=== PATIENT | female | born 1960 | race Caucasian/White ===

== ENCOUNTER 2016-09-18 12:38 | Emergency (ER) | payer SELFPAY ==
[2016-09-18 12:51] VITALS: BP 134/74
[2016-09-18] MEDS ORDERED: ASPIRIN 81 MG TABLET, CHEWABLE PO ONE (12:55)
--- NOTE | 2016-09-18 12:55 | ER Document Report ---
ED Medical Screen (RME) - General Chief Complaint: Chest Pain Stated Complaint: DIFFICULTY BREATHING Time seen by provider: 12:53 Mode of Arrival: Ambulatory Information source: Patient Notes: 56-year-old female presents to ED for shortness of breath times a week the chest pains this started last night will tight in the chest and back. States she was seen at [place] last week diagnosed with bronchitis. Denies any cardiac history. Complains of nausea but no vomiting states feels like heartburn every time she swallows. I have greeted and performed a rapid initial assessment of this patient. A comprehensive ED assessment and evaluation of the patient, analysis of test results and completion of medical decision making process will be conducted by an additional ED providers. TRAVEL OUTSIDE OF THE [place] IN LAST 30 DAYS: No - Related Data Allergies/Adverse Reactions: No Known Allergies Allergy (Verified 12/27/12 01:50) Past Medical History Musculoskeltal Medical History: Reports Hx Arthritis, Reports Hx Musculoskeletal Trauma - right torn menisus Past Surgical History: Reports: Hx Section, Hx Orthopedic Surgery - rt knee ( meniscus} - Immunizations Immunizations up to date: No Hx Diphtheria, Pertussis, Tetanus Vaccination: No Physical Exam - Vital signs Vitals: Temp Pulse Resp BP Pulse Ox 98.0 F 80 16 134/74 H 97 09/18/16 12:50 09/18/16 12:50 09/18/16 12:50 09/18/16 12:50 09/18/16 12:50 Course - Vital Signs Vital signs: Temp Pulse Resp BP Pulse Ox 98.0 F 80 16 134/74 H 97 09/18/16 12:50 09/18/16 12:50 09/18/16 12:50 09/18/16 12:50 09/18/16 12:50
[2016-09-18 13:52] LABS: ABSOLUTE EOSINOPHILS # (AUTO) 0.3 10^3/uL (0.0-0.6); ABSOLUTE LYMPHOCYTES (AUTO) 1.4 10^3/uL (0.5-4.7); ABSOLUTE MONOCYTES (AUTO) 0.4 10^3/uL (0.1-1.4); ABSOLUTE NEUT (AUTO) 2.9 10^3/uL (1.7-8.2); BASOPHILS % (AUTO) 0.7 % (0-2); EOSINOPHILS % (AUTO) 6.3 % (0-6); HEMATOCRIT 34.3 % (36.0-47.0); HEMOGLOBIN 10.5 g/dL (12.0-15.5); HGB HCT DIFFERENCE -2.8; LYMPHOCYTES % (AUTO) 27.5 % (13-45); MEAN CORPUSCULAR HEMOGLOBIN 25.1 pg (27.0-33.4); MEAN CORPUSCULAR HGB CONC 30.7 g/dL (32.0-36.0); MEAN CORPUSCULAR VOLUME 82 fl (80-97); MONOCYTES % (AUTO) 8.6 % (3-13); RED CELL DISTRIBUTION WIDTH 15.7 % (11.5-14.0); SEGMENTED NEUTROPHILS % (AUTO) 56.9 % (42-78); WHITE BLOOD COUNT 5.1 10^3/uL (4.0-10.5)
[2016-09-18 14:03] LABS: ALANINE AMINOTRANSFERASE 23 U/L (9-52); ALBUMIN 3.8 g/dL (3.5-5.0); ALKALINE PHOSPHATASE 52 U/L (38-126); ANION GAP 9 (5-19); ASPARTATE AMINO TRANSFERASE 17 U/L (14-36); BILIRUBIN,TOTAL 0.4 mg/dL (0.2-1.3); BLOOD UREA NITROGEN 12 mg/dL (7-20); CALCIUM 9.3 mg/dL (8.4-10.2); CARBON DIOXIDE 31 mmol/L (22-30); CHLORIDE 100 mmol/L (98-107); CREATINE KINASE 112 U/L (30-135); GLUCOSE 99 mg/dL (75-110); POTASSIUM 4.7 mmol/L (3.6-5.0); SODIUM 139.8 mmol/L (137-145); TOTAL PROTEIN 6.9 g/dL (6.3-8.2)
[2016-09-18 14:14] LABS: CREATINE KINASE MB 2.07 ng/mL (<4.55)
[2016-09-18 14:18] LABS: TROPONIN I < 0.012 ng/mL
--- NOTE | 2016-09-18 15:04 | ER Document Report ---
ED General - General Chief Complaint: Cough Stated Complaint: DIFFICULTY BREATHING Mode of Arrival: Ambulatory TRAVEL OUTSIDE OF THE [place] IN LAST 30 DAYS: No - HPI Patient complains to provider of: cough shortness of breath Onset: Last week Onset/Duration: Gradual Notes: Patient coming in for evaluation of cough and was breath. Patient was seen last week at [facility] for similar complaint and was given IV are all steroids and Z-Jose. Patient states she finished up her antibiotics but states she feels she her symptoms continue. Patient denies ever smoking denies history COPD. Denies any recent travel denies any pain denies fever chills nausea vomiting abdominal pain diarrhea. Patient upon evaluation is nontoxic. Vital signs show no signs of hypoxia. - Related Data Allergies/Adverse Reactions: No Known Allergies Allergy (Verified 09/18/16 12:54) Past Medical History - General Information source: Patient - Social History Smoking Status: Never Smoker Chew tobacco use (# tins/day): No Frequency of alcohol use: None Drug Abuse: None Family History: None Patient has suicidal ideation: No Patient has homicidal ideation: No Renal/ Medical History: Denies: Hx Peritoneal Dialysis Musculoskeltal Medical History: Reports Hx Arthritis, Reports Hx Musculoskeletal Trauma - right torn menisus Past Surgical History: Reports: Hx Section, Hx Orthopedic Surgery - rt knee ( meniscus} - Immunizations Immunizations up to date: No Hx Diphtheria, Pertussis, Tetanus Vaccination: No Review of Systems - Review of Systems Constitutional: No symptoms reported EENT: No symptoms reported Cardiovascular: No symptoms reported Respiratory: Cough, Short of breath Gastrointestinal: No symptoms reported Genitourinary: No symptoms reported Female Genitourinary: No symptoms reported Musculoskeletal: No symptoms reported Skin: No symptoms reported Hematologic/Lymphatic: No symptoms reported Neurological/Psychological: No symptoms reported -: Yes All other systems reviewed and negative Physical Exam - Vital signs Vitals: Temp Pulse Resp BP Pulse Ox 98.0 F 80 16 134/74 H 97 09/18/16 12:50 09/18/16 12:50 09/18/16 12:50 09/18/16 12:50 09/18/16 12:50 Interpretation: Normal - General General appearance: Appears well, Alert - HEENT Head: Normocephalic, Atraumatic Eyes: Normal Pupils: PERRL - Respiratory Respiratory status: No respiratory distress Chest status: Nontender Breath sounds: Normal, Other - Clear no coughing while in examination room Chest palpation: Normal - Cardiovascular Rhythm: Regular Heart sounds: Normal auscultation Murmur: No - Abdominal Inspection: Normal Distension: No distension Bowel sounds: Normal Tenderness: Nontender Organomegaly: No organomegaly - Back Back: Normal, Nontender - Extremities General upper extremity: Normal inspection, Nontender, Normal color, Normal ROM , Normal temperature General lower extremity: Normal inspection, Nontender, Normal color, Normal ROM , Normal temperature, Normal weight bearing. No: Jones's sign - Neurological Neuro grossly intact: Yes Cognition: Normal Orientation: AAOx4 [place] Coma Scale Eye Opening: Spontaneous Tray Coma Scale Verbal: Oriented [place] Coma Scale Motor: Obeys Commands Tray Coma Scale Total: 15 Speech: Normal Motor strength normal: LUE, RUE, LLE, RLE Sensory: Normal - Psychological Associated symptoms: Normal affect, Normal mood - Skin Skin Temperature: Warm Skin Moisture: Dry Skin Color: Normal Course - Re-evaluation Re-evalutation: 09/18/16 15:01 Patient was treated properly for her bronchitis prior to arrival. At this time patient's lungs are clear no signs of hypoxia no tachypnea. Patient has no travel history patient does not have any criteria to make me think of a PE. An EKG laboratory was performed all negative. Patient was encouraged follow-up with her primary care physician. Patient at the end of examination does admit that she does have a albuterol inhaler but is unable to use it. Education was provided to the patient. An AeroChamber was also provided to the patient. 09/18/16 22:20 - Vital Signs Vital signs: Temp Pulse Resp BP Pulse Ox 98.0 F 80 16 134/74 H 97 09/18/16 12:50 09/18/16 12:50 09/18/16 12:50 09/18/16 12:50 09/18/16 12:50 - Laboratory Result Diagrams: 09/18/16 13:25 09/18/16 13:25 Laboratory results interpreted by me: 09/18/16 09/18/16 13:25 13:25 Hgb 10.5 L Hct 34.3 L MCH 25.1 L MCHC 30.7 L RDW 15.7 H Eosinophils % 6.3 H Carbon Dioxide 31 H Discharge - Discharge Clinical Impression: Otalgia of both ears Dyspnea Qualifiers: Dyspnea type: unspecified Qualified Code(s): R06.00 - Dyspnea, unspecified Condition: Good Disposition: HOME, SELF-CARE Instructions: Bronchitis ([facility]) Additional Instructions: You were perfectly treated for your bronchitis at [facility]. Although you have finished her medications your symptoms may linger for 1-2 weeks after treatment. Examination today is normal your chest x-ray and lab work are also normal. I would highly recommend using the inhaler that she obtained from [employer] and from here at [facility] 2 puffs every 4 hours for any shortness of breath. Please follow-up with your primary care physician for further evaluation. You do have fluid behind both of your eardrums. More likely this is from congestion. You may take the decongestant as prescribed. Prescriptions: Loratadine/Pseudoephedrine Sul [Claritin-D 12 Hour Tablet] 1 each PO BID #[id number] Referrals: KEESHA DANIEL PA-C [Primary Care Provider] - Follow up as needed
[2016-09-18] MEDS ORDERED: ALBUTEROL SULFATE HFA (90 MCG/PUFF) 8 GM MDI (1 MDI/ER DISP) IH ONE (15:06)
--- NOTE | 2016-09-18 18:42 | EKG REPORT ---
SEVERITY:- BORDERLINE ECG - SINUS RHYTHM BORDERLINE LEFT AXIS DEVIATION BORDERLINE T ABNORMALITIES, ANT-LAT LEADS : Confirmed by: Lucrecia Galan MD 18-Sep-2016 18:41:05
== END 2016-09-18 15:35 | disposition home or self-care (01) ==
LOC: ER 12:38
DX: R06.02 Shortness of breath (principal); H92.03 Otalgia, bilateral; R05 Cough
CPT/HCPCS: 93005; 99284; 36415; 82553; 82550; 85025; 80053; 84484; 71020; 93010; J3490

== ENCOUNTER 2018-04-30 12:17 | Emergency (ER) | payer SELFPAY ==
[2018-04-30] MEDS ORDERED: TETRACAINE HCL 0.5% OPH SOLN 4 ML OD ONE (13:06)
--- NOTE | 2018-04-30 13:20 | ER Document Report ---
ED Eye Complaint - General Chief Complaint: Eye Problem Stated Complaint: EYE ISSUE Time Seen by Provider: 04/30/18 13:00 Mode of Arrival: Ambulatory Information source: Patient Notes: 57-year-old female presents to ED for complaint of eye redness itching and watering since yesterday. Patient states she gets this every year about this time. She sometimes has drainage and runny eye and he gets a little red. She states her boss that she had to come and get it checked out. TRAVEL OUTSIDE OF THE [place] IN LAST 30 DAYS: No - HPI Onset: Yesterday Eye location: Left Injury: No Occurred at: Home Quality of pain: Other - Itchy irritated Severity: Mild Pain Level: 1 Associated symptoms: Itching - Related Data Allergies/Adverse Reactions: No Known Allergies Allergy (Verified 04/30/18 12:19) Past Medical History - General Information source: Patient - Social History Smoking Status: Unknown if Ever Smoked Chew tobacco use (# tins/day): No Frequency of alcohol use: None Drug Abuse: None Family History: None Patient has suicidal ideation: No Patient has homicidal ideation: No Renal/ Medical History: Denies: Hx Peritoneal Dialysis Musculoskeletal Medical History: Reports Hx Arthritis, Reports Hx Musculoskeletal Trauma - right torn menisus Past Surgical History: Reports: Hx Section, Hx Orthopedic Surgery - rt knee ( meniscus} - Immunizations Immunizations up to date: No Hx Diphtheria, Pertussis, Tetanus Vaccination: No Physical Exam - Vital signs Vitals: Temp Pulse Resp BP Pulse Ox 98.4 F 76 18 147/76 H 100 04/30/18 12:23 04/30/18 12:23 04/30/18 12:23 04/30/18 12:23 04/30/18 12:23 Interpretation: Normal - General General appearance: Appears well, Alert - HEENT Head: Normocephalic, Atraumatic Eyes: Normal, Tears Conjunctiva: Injected. No: Purulent discharge Cornea: No: Corneal abrasion, Corneal ulcer, Dendrite, Embedded foreign body, Flourescein stain uptake, Opacified, Superficial foreign body Eyelashes: Normal Pupils: PERRL Visual acuity- Right eye: 20/25 Visual acuity- Left eye: 20/30 Visual acuity- Both eyes: 20/30 Corrective lenses worn: No Ears: Normal External canal: Normal Tympanic membrane: Normal Sinus: Normal Nasal: Normal Mouth/Lips: Normal Pharynx: Normal Neck: Normal - Respiratory Respiratory status: No respiratory distress Chest status: Nontender Breath sounds: Normal Chest palpation: Normal - Cardiovascular Rhythm: Regular Heart sounds: Normal auscultation Murmur: No - Abdominal Inspection: Normal Distension: No distension Bowel sounds: Normal Tenderness: Nontender Organomegaly: No organomegaly - Back Back: Normal, Nontender - Extremities General upper extremity: Normal inspection, Nontender, Normal color, Normal ROM , Normal temperature General lower extremity: Normal inspection, Nontender, Normal color, Normal ROM , Normal temperature, Normal weight bearing. No: Jones's sign - Neurological Neuro grossly intact: Yes Cognition: Normal Orientation: AAOx4 [place] Coma Scale Eye Opening: Spontaneous Tray Coma Scale Verbal: Oriented Tray Coma Scale Motor: Obeys Commands Tray Coma Scale Total: 15 Speech: Normal Motor strength normal: LUE, RUE, LLE, RLE Sensory: Normal - Psychological Associated symptoms: Normal affect, Normal mood - Skin Skin Temperature: Warm Skin Moisture: Dry Skin Color: Normal Course - Vital Signs Vital signs: Temp Pulse Resp BP Pulse Ox 98.0 F 66 14 146/77 H 100 04/30/18 13:55 04/30/18 13:55 04/30/18 13:55 04/30/18 13:55 04/30/18 13:55 Discharge - Discharge Clinical Impression: Viral conjunctivitis of right eye Condition: Stable Disposition: HOME, SELF-CARE Additional Instructions: CONJUNCTIVITIS: You have an infection in your eye, commonly known as "pink eye." Conjunctivitis causes redness, mild discomfort, itching, and mattering on the eyelids. It is very contagious, so you must be careful to wash your hands after touching your face so you don't pass the infection on to others. Conjunctivitis is caused by both viruses and bacteria. It usually responds quickly to treatment with antibiotic drops. These should be placed in the eye as prescribed (usually every three to four hours while you're awake). If you wear contact lenses, don't put them in your eyes until the infection is cleared and you are no longer using the drops (unless your doctor advises you otherwise). Should you develop increasing eye pain, severe swelling, decreased vision, or fail to improve as expected, please return for re-examination. EYEDROP USE: Eyedrops are most easily applied by pulling down on the cheek just below the lower eyelid. The lower lid will pop out to form a pouch into which you can drop the medicine. A small brief sting is not unusual, especially if the eye is reddened and irritated already. Use the drops exactly as recommended. You should see the doctor at once if there is a decrease in vision, swelling of the eye, or an increase in discomfort. FOLLOW-UP CARE: If you have been referred to a physician for follow-up care, call the physician s office for an appointment as you were instructed or within the next two days. If you experience worsening or a significant change in your symptoms, notify the physician immediately or return to the Emergency Department at any time for re-evaluation. Prescriptions: Trifluridine [Viroptic] 1 drop RT_EYE Q3HWA 7 Days drops Forms: Elevated Blood Pressure, Return to Work Referrals: KEESHA DANIEL PA-C [Primary Care Provider] - Follow up as needed
[2018-04-30] MEDS ORDERED: TRIFLURIDINE 1% OPH SOLN 7.5 ML OD ONE (13:21)
[2018-04-30 13:59] VITALS: BP 146/77
== END 2018-04-30 13:55 | disposition home or self-care (01) ==
LOC: ER 12:17
DX: B30.9 Viral conjunctivitis, unspecified (principal)
CPT/HCPCS: 99283; J3490 ×2

== ENCOUNTER 2018-06-28 13:15 | Observation (INO) | payer SELFPAY ==
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
[2018-06-28 14:45] LABS: HEMATOCRIT 24.2 % (36.0-47.0); MEAN CORPUSCULAR HEMOGLOBIN 19.6 pg (27.0-33.4); MEAN CORPUSCULAR VOLUME 65 fl (80-97); PLATELET COUNT 243 10^3/uL (150-450); RED BLOOD COUNT 3.71 10^6/uL (3.72-5.28); RED CELL DISTRIBUTION WIDTH 18.6 % (11.5-14.0)
[2018-06-28 14:48] LABS: ALANINE AMINOTRANSFERASE 16 U/L (9-52); ALKALINE PHOSPHATASE 44 U/L (38-126); ANION GAP 9 (5-19); ASPARTATE AMINO TRANSFERASE 14 U/L (14-36); BILIRUBIN,DIRECT 0.1 mg/dL (0.0-0.4); BILIRUBIN,TOTAL 0.4 mg/dL (0.2-1.3); BLOOD UREA NITROGEN 14 mg/dL (7-20); CALCIUM 9.2 mg/dL (8.4-10.2); CARBON DIOXIDE 30 mmol/L (22-30); CHLORIDE 103 mmol/L (98-107); GLUCOSE 90 mg/dL (75-110); TOTAL PROTEIN 7.4 g/dL (6.3-8.2)
[2018-06-28 14:49] LABS: POTASSIUM 4.6 mmol/L (3.6-5.0)
--- NOTE | 2018-06-28 14:57 | RADIOLOGY REPORT (SQ) ---
EXAM DESCRIPTION: CT HEAD WITHOUT COMPLETED DATE/TIME: 06/28/2018 2:11 pm REASON FOR STUDY: head trauma COMPARISON: None. TECHNIQUE: Axial images acquired through the brain without intravenous contrast. Images reviewed wi th bone, brain and subdural windows. Images stored on PACS. All CT scanners at this facility use dose modulation, iterative reconstruction, and/or weight based d osing when appropriate to reduce radiation dose to as low as reasonably achievable (ALARA). [facility]: Dose Right [facility]: CareDose [facility]: Dose Right [facility]: Teradose 4D [facility]: [employer] RADIATION DOSE: CT Rad equipment meets quality standard of care and radiation dose reduction techniq ues were employed. CTDIvol: 53.2 mGy. DLP: 1017 mGy-cm. mGy. LIMITATIONS: None. FINDINGS: VENTRICLES: Normal size and contour. CEREBRUM: No masses. No hemorrhage. No midline shift. No evidence for acute infarction. Normal gra y/white matter differentiation. No areas of low density in the white matter. CEREBELLUM: No masses. No hemorrhage. No alteration of density. No evidence for acute infarction. EXTRAAXIAL SPACES: No fluid collections. No masses. ORBITS AND GLOBE: No intra- or extraconal masses. Normal contour of globe without masses. CALVARIUM: No fracture. PARANASAL SINUSES: No fluid or mucosal thickening. SOFT TISSUES: No mass or hematoma. OTHER: No other significant finding. IMPRESSION: No acute intracranial findings. EVIDENCE OF ACUTE STROKE: NO. COMMENT: Quality ID # [id number]: Final reports with documentation of one or more dose reduction techniques (e.g., Automated exposure control, adjustment of the mA and/or kV according to patient size, use of iterative reconstruction technique) TECHNICAL DOCUMENTATION: JOB ID: [id number] [place]-72 2010 [employer]- All Rights Reserved Reading location - IP/workstation name: [email or web address]
[2018-06-28 14:58] LABS: HEMOGLOBIN 7.3 g/dL (12.0-15.5)
[2018-06-28 15:05] LABS: ABSOLUTE LYMPHOCYTES# (MANUAL) 1.6 10^3/uL (0.5-4.7); ABSOLUTE MONOCYTES # (MANUAL) 0.1 10^3/uL (0.1-1.4); ABSOLUTE NEUTROPHILS# (MANUAL) 3.2 10^3/uL (1.7-8.2); BASOPHILS % (MANUAL) 1 % (0-2); EOSINOPHILS % (MANUAL) 3 % (0-6); LYMPHOCYTES % (MANUAL) 31 % (13-45); MONOCYTES % (MANUAL) 2 % (3-13); SEGMENTED NEUTROPHILS % (MAN) 63 % (42-78); TOTAL CELLS COUNTED 100
[2018-06-28 15:08] LABS: ANISOCYTOSIS 2+; HYPOCHROMASIA 2+; PLATELET CLUMPS PRESENT; PLATELET COMMENT ADEQUATE; POIKILOCYTOSIS 1+; POLYCHROMASIA 1+; STOMATOCYTES 1+
[2018-06-28] MEDS ORDERED: PROMETHAZINE HCL 25 MG TABLET PO PRN (19:16)
[2018-06-28] MEDS ORDERED: ACETAMINOPHEN 325 MG TABLET PO PRN (19:16)
[2018-06-28] MEDS ORDERED: PROMETHAZINE HCL INJ 25 MG/1 ML VIAL IV PRN (19:16)
[2018-06-28] MEDS ORDERED: MAG HYDROX/AL HYDROX/SIMETH SUSP 30 ML UDCUP PO PRN (19:16)
[2018-06-28] MEDS ORDERED: NORMAL SALINE 250 ML IV PRN (19:17)
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
[2018-06-28 19:56] LABS: ABSOLUTE RETICS # 0.052 10^6/uL (0.028-0.122)
--- NOTE | 2018-06-28 19:57 | PDOC H&P ---
History of Present Illness Admission Date/PCP: 06/28/2018 19:42 NO PCP Patient complains of: Dizziness History of Present Illness: MANUEL MERLOS is a 57 year old female with medical history remarkable only for iron deficiency anemia since she is very young not on iron supplements. Patient tells me that 2 days ago she got hit on her head with a basketball ball , she felt dizzy, she went home, did not come to the emergency department. Since then patient has been feeling very dizzy and lightheaded. She works at [employer], she went to work today and was unable because of her symptoms, came to the emergency department. Laboratory was done in the ED and came with a hemoglobin of 7.3 with hematocrit of 24, last laboratory in our facility was from August 2016 with hemoglobin of 10.5 and hematocrit of 34, tells me that she never had her hemoglobin is low. Denies chest pain/tightness, shortness of breath, nausea, vomiting, hematuria, hemoptysis, hematemesis, hematochezia or melena. Last bowel movement today in the morning and was normal. Her last menstrual period was when when she was 50 years old. Never had a colonoscopy. In the emergency department occult blood in the stools was negative. CT of the head negative In the ED order type and screen and 2 units of PRBC Past Medical History Musculoskeltal Medical History: Reports: Arthritis Hematology: Reports: Anemia - Iron deficiency Past Surgical History Past Surgical History: Reports: Section, Orthopedic Surgery - rt knee ( meniscus} Social History Smoking Status: Never Smoker Frequency of Alcohol Use: None Hx Recreational Drug Use: No Hx Prescription Drug Abuse: No Past Social History Note: Lives with her who is at the bedside. Family History Family History: None Parental Family History Reviewed: Yes - Patient is adopted Children Family History Reviewed: NA Sibling(s) Family History Reviewed.: NA Medication/Allergy Home Medications: Loratadine/Pseudoephedrine Sul [Claritin-D 12 Hour Tab Sa] 1 each PO BID Allergies/Adverse Reactions: No Known Allergies Allergy (Verified 06/28/18 13:57) Review of Systems Review of Systems: As outlined in the HPI, others negative Physical Exam Vital Signs: Temp Pulse Resp BP Pulse Ox 98.2 F 57 L 20 136/77 H 99 06/28/18 13:26 06/28/18 16:59 06/28/18 13:26 06/28/18 16:59 06/28/18 13:26 Intake & Output 06/27/18 06/28/18 06/29/18 06:59 06:59 05:59 Weight 69.9 kg Additional comments: General appearance: Well-developed, well-nourished, alert and cooperative, and appears to be in no acute distress. Patient is able to walk to the bathroom with no problems. Head: Normocephalic Eyes: PEERL, EOMI, vision is grossly intact. Ears: External auditory canal and tympanic membranes clear, hearing grossly intact. Nose: No nasal discharge. Throat: Oral cavity and pharynx normal. No inflammation, swelling, exudate or lesions. Neck: Neck supple, nontender without lymphadenopathy, masses or thyromegaly. Cardiac: Normal S1 and S2. No S3, S4 or murmurs. Rhythm is regular. There is no peripheral edema, cyanosis or pallor. Extremities are warm and well perfused. Capillary refill is less than 2 seconds. No carotid bruits. Lungs: Clear to auscultation and percussion without rales, rhonchi, wheezing or diminished breath sounds. Not using accessory muscles. Abdomen: Positive bowel sounds. Soft. Nondistended, nontender. No guarding or rebound. No masses. No hepatosplenomegaly Extremities: No significant deformity or joint abnormality. No edema. Peripheral pulses intact. No varicosities. Neurological: Cranial nerves II through XII grossly intact. Strength and sensation symmetric and intact throughout. Reflexes 2+ throughout. Skin: Skin pale, normal texture and turgor with no lesions or eruptions, warm and dry. Psychiatric: The mental examination revealed the patient was oriented to person , place, and time. The patient was able to demonstrate good judgment on recent , without hallucinations, abnormal affect or abnormal behaviors. Results Laboratory Results: 06/28/18 14:08 06/28/18 14:08 06/28/18 06/28/18 06/28/18 14:08 14:08 17:28 WBC 5.0 RBC 3.71 L Hgb 7.3 L Hct 24.2 L MCV 65 L MCH 19.6 L MCHC 30.0 L RDW 18.6 H Plt Count 243 Seg Neutrophils % Not Reportable Lymphocytes % Not Reportable Monocytes % Not Reportable Eosinophils % Not Reportable Basophils % Not Reportable Absolute Neutrophils Not Reportable Absolute Lymphocytes Not Reportable Absolute Monocytes Not Reportable Absolute Eosinophils Not Reportable Absolute Basophils Not Reportable Sodium 142.0 Potassium 4.6 Chloride 103 Carbon Dioxide 30 Anion Gap 9 BUN 14 Creatinine 0.82 Est GFR ( Amer) > 60 Est GFR (Non-Af Amer) > 60 Glucose 90 Calcium 9.2 Total Bilirubin 0.4 AST 14 ALT 16 Alkaline Phosphatase 44 Total Protein 7.4 Albumin 4.0 Stool Occult Blood NEGATIVE Impressions: Head CT 06/28/18 13:56 IMPRESSION: No acute intracranial findings. EVIDENCE OF ACUTE STROKE: NO. Assessment & Plan - Diagnosis (1) Symptomatic anemia Is this a current diagnosis for this admission?: Yes Plan: Patient comes in the emergency department with persistent dizziness and lightheadedness for the last 2 days, she denies other symptomatology. Patient is not actively bleeding. Hemoglobin 7.2 hematocrit 24 with a MCV of 65 and many red blood cells abnormalities. occult blood stools negative. Type and screen ordered in the emergency department as well as 2 units of PRBC. I am adding to previous labs anemia workup with iron, TIBC, ferritin, vitamin B12, folate, reticulocyte, TSH. Patient never had insurance and does the reason she did not have a colonoscopy. Continues telemetry monitoring. (2) Iron deficiency anemia Qualifiers: Iron deficiency anemia type: unspecified iron deficiency Qualified Code(s) : D50.9 - Iron deficiency anemia, unspecified Is this a current diagnosis for this admission?: Yes Plan: Anemia workup has been sent, we will treat accordingly. Patient tells me that she used to take Centrum for her iron deficiency anemia but she cannot afford it , last used 2 years ago. (3) DVT prophylaxis Is this a current diagnosis for this admission?: Yes Plan: SCD - Time Time Spent: 50 to 70 Minutes - Plan Summary Plan Summary: Plan discussed with patient and who is at the bedside, agree with it.
[2018-06-28 20:19] LABS: FERRITIN 4.48 ng/mL (11.1-264.0)
[2018-06-28 20:22] LABS: INTERNATIONAL RATION (INR) 0.98; PROTHROMBIN TIME 13.5 SEC (11.4-15.4)
[2018-06-28 20:51] LABS: IRON(TIBC) < 10.1 ug/dL (37-170)
[2018-06-29 06:46] LABS: HEMATOCRIT 28.5 % (36.0-47.0); MEAN CORPUSCULAR HGB CONC 31.2 g/dL (32.0-36.0); PLATELET COUNT 198 10^3/uL (150-450); RED BLOOD COUNT 4.04 10^6/uL (3.72-5.28); WHITE BLOOD COUNT 3.8 10^3/uL (4.0-10.5)
[2018-06-29 06:51] LABS: HEMOGLOBIN 8.9 g/dL (12.0-15.5)
[2018-06-29 07:04] LABS: ANION GAP 9 (5-19); BLOOD UREA NITROGEN 9 mg/dL (7-20); CALCIUM 8.9 mg/dL (8.4-10.2); CARBON DIOXIDE 27 mmol/L (22-30); CHLORIDE 105 mmol/L (98-107); GLUCOSE 100 mg/dL (75-110); POTASSIUM 4.7 mmol/L (3.6-5.0); SODIUM 140.5 mmol/L (137-145)
[2018-06-29 07:14] LABS: MEAN CORPUSCULAR VOLUME 71 fl (80-97)
[2018-06-29] MEDS ORDERED: FERROUS SULFATE 325 MG TABLET PO SCH (08:00)
--- NOTE | 2018-06-29 12:41 | PDOC CONSULTATION ---
Consultation Consult Date: 06/29/18 Consult reason:: Anemia History of Present Illness Admission Date/PCP: 06/28/18 19:28 Patient complains of: lightheadedness History of Present Illness: MANUEL MERLOS is a 57 year old female who claims she has history of chronic anemia was hit by a basketball on her head about 3 days ago. Was sent to ED while at work yesterday because of lightheadednedd. Hemoglobin on admission was 7.3 and went up yo 8.9 after 2 units of PRBC. Stool is negative for guiac. She feels a lot better now. Claims she may have lost a few lbs since working at [employer] where she claims no airconditioning and sweats alot. She refuses to have colonoscopy at this time despite long discussion with her and her . Past Medical History Musculoskeltal Medical History: Reports: Arthritis Hematology: Reports: Anemia - Iron deficiency Past Surgical History Past Surgical History: Reports: Section, Orthopedic Surgery - rt knee ( meniscus} Social History Smoking Status: Never Smoker Frequency of Alcohol Use: None Hx Recreational Drug Use: No Drugs: None Hx Prescription Drug Abuse: No - Advance Directive Resuscitation Status: Full Code Family History Family History: None, Reviewed & Not Pertinent, Other - adopted and does not know history of parents. All children apparently are well. Parental Family History Reviewed: No Children Family History Reviewed: Yes Sibling(s) Family History Reviewed.: No Medication/Allergy Home Medications: Fexofenadine HCl [Carolee] 180 mg PO DAILYP PRN 06/29/18 Allergies/Adverse Reactions: No Known Allergies Allergy (Verified 06/28/18 13:57) Review of Systems Constitutional: PRESENT: weight loss, other - a few lbs maybe 20-25 lbs for past year Eyes: PRESENT: other - no visual/hearing changes Cardiovascular: PRESENT: other - no chest pains/cough Respiratory: PRESENT: other - no dyspnea Gastrointestinal: PRESENT: other - no melena Genitourinary: PRESENT: other - no dysuria Neurological: PRESENT: other - lightheadedness Physical Exam Vital Signs: Temp Pulse Resp BP Pulse Ox 98.5 F 62 16 131/78 H 99 06/29/18 09:24 06/29/18 09:24 06/29/18 09:24 06/29/18 09:24 06/29/18 09:24 Intake & Output 06/28/18 06/29/18 06/30/18 07:59 06:59 06:59 Intake Total Balance Weight General appearance: PRESENT: no acute distress Head exam: PRESENT: atraumatic Eye exam: PRESENT: conjunctiva pale Mouth exam: PRESENT: moist Neck exam: PRESENT: full ROM Respiratory exam: PRESENT: clear to auscultation herb Cardiovascular exam: PRESENT: RRR Pulses: PRESENT: normal radial pulses Vascular exam: PRESENT: normal capillary refill GI/Abdominal exam: PRESENT: soft, other - no mass palpated or organomegaly Rectal exam: PRESENT: deferred Extremities exam: PRESENT: full ROM Musculoskeletal exam: PRESENT: ambulatory Neurological exam: PRESENT: alert, oriented to person, oriented to place, oriented to time, oriented to situation Psychiatric exam: PRESENT: appropriate affect Skin exam: PRESENT: normal color, warm Results Laboratory Results: 06/29/18 06:20 06/29/18 06:20 06/28/18 06/29/18 06/29/18 19:49 06:20 06:20 WBC 3.8 L RBC 4.04 Hgb 8.9 L Hct 28.5 L MCV 71 L D MCH 22.0 L MCHC 31.2 L RDW 24.0 H Plt Count 198 Sodium 140.5 Potassium 4.7 Chloride 105 Carbon Dioxide 27 Anion Gap 9 BUN 9 Creatinine 0.60 Est GFR ( Amer) > 60 Est GFR (Non-Af Amer) > 60 Glucose 100 Calcium 8.9 Blood Type O POSITIVE Antibody Screen NEGATIVE Impressions: Head CT 06/28/18 13:56 IMPRESSION: No acute intracranial findings. EVIDENCE OF ACUTE STROKE: NO. Assessment & Plan - Time Time Spent: 30 to 50 Minutes - Plan Summary Plan Summary: Refuses colonoscopy at this time She claims she'll see her 's PMD though she does not have insurance at this time
[2018-06-29 13:07] VITALS: BP 140/76
--- NOTE | 2018-06-29 14:47 | PDOC DISCHARGE SUMMARY ---
General - Admit/Disc Date/PCP Admission Date/Primary Care Provider: 06/28/18 19:28 Discharge Date: 06/29/18 - Discharge Diagnosis (1) Iron deficiency anemia Is this a current diagnosis for this admission?: Yes (2) Symptomatic anemia Is this a current diagnosis for this admission?: Yes - Additional Information Resuscitation Status: Full Code Home Medications: Fexofenadine HCl [Carolee] 180 mg PO DAILYP PRN 06/29/18 History of Present Illness History of Present Illness: MANUEL MERLOS is a 57 year old female with medical history remarkable only for iron deficiency anemia since she is very young not on iron supplements. Patient tells me that 2 days ago she got hit on her head with a basketball ball , she felt dizzy, she went home, did not come to the emergency department. Since then patient has been feeling very dizzy and lightheaded. She works at [employer], she went to work today and was unable because of her symptoms, came to the emergency department. Laboratory was done in the ED and came with a hemoglobin of 7.3 with hematocrit of 24, last laboratory in our facility was from August 2016 with hemoglobin of 10.5 and hematocrit of 34, tells me that she never had her hemoglobin is low. Denies chest pain/tightness, shortness of breath, nausea, vomiting, hematuria, hemoptysis, hematemesis, hematochezia or melena. Last bowel movement today in the morning and was normal. Her last menstrual period was when when she was 50 years old. Never had a colonoscopy. In the emergency department occult blood in the stools was negative. CT of the head negative In the ED order type and screen and 2 units of PRBC Hospital Course Hospital Course: Positive patient left AMA. She was counseled about her iron deficiency anemia and the need for further workup and the risk of not treating it. Surgery was consulted for possible colonoscopy but she refused it. Hematology oncology was also consulted for further iron deficiency anemia. Patient decided to leave AMA anyway Physical Exam Vital Signs: Temp Pulse Resp BP Pulse Ox 98.4 F 55 L 13 140/76 H 100 06/29/18 13:07 06/29/18 13:07 06/29/18 13:07 06/29/18 13:07 06/29/18 13:07 Intake & Output 06/28/18 06/29/18 06/30/18 07:59 06:59 06:59 Intake Total 118 Balance 118 Weight Results Laboratory Results: 06/29/18 06:20 06/29/18 06:20 06/28/18 06/29/18 06/29/18 19:49 06:20 06:20 WBC 3.8 L RBC 4.04 Hgb 8.9 L Hct 28.5 L MCV 71 L D MCH 22.0 L MCHC 31.2 L RDW 24.0 H Plt Count 198 Sodium 140.5 Potassium 4.7 Chloride 105 Carbon Dioxide 27 Anion Gap 9 BUN 9 Creatinine 0.60 Est GFR ( Amer) > 60 Est GFR (Non-Af Amer) > 60 Glucose 100 Calcium 8.9 Blood Type O POSITIVE Antibody Screen NEGATIVE Impressions: Head CT 06/28/18 13:56 IMPRESSION: No acute intracranial findings. EVIDENCE OF ACUTE STROKE: NO. Qualifiers - * PATIENT BEING DISCHARGED WITH ANY OF THE FOLLOWING DIAGNOSIS: No
== END 2018-06-29 13:00 | disposition left against medical advice (07) ==
LOC: ER 13:15 → EH 19:28 → 5 20:40
PROVIDERS: ADMIT Internal Medicine; ATTEND Internal Medicine
PROC: 30233N1 Transfusion of Nonautologous Red Blood Cells into Peripheral Vein, Percutaneous Approach (ICD-10-PCS; principal; 2018-06-28)
PROC: 30233N1 Transfusion of Nonautologous Red Blood Cells into Peripheral Vein, Percutaneous Approach (ICD-10-PCS; 2018-06-29)
DX: D50.9 Iron deficiency anemia, unspecified (principal); Z53.21 Procedure and treatment not carried out due to patient leaving prior to being seen by health care provider; R63.4 Abnormal weight loss; Z53.29 Procedure and treatment not carried out because of patient's decision for other reasons; R42 Dizziness and giddiness; R11.0 Nausea; R51 Headache; W21.05XA Struck by basketball, initial encounter; Y92.838 Other recreation area as the place of occurrence of the external cause
CPT/HCPCS: 99285; 86900; 86901; 36415 ×2; 36430; 86850; 82607; 82728; 82746; 83540; 83550; 84443; 85025; 85027; 85610; 85730; 82272; 85045; 80048; 80053; 86920; 70450; G0378 ×3; P9016 ×2

== ENCOUNTER 2018-08-06 13:37 | Emergency (ER) | payer SELFPAY ==
[2018-08-06 13:50] VITALS: BP 142/79
[2018-08-06 14:11] LABS: APPEARANCE,URINE CLOUDY; BILIRUBIN,URINE NEGATIVE (NEGATIVE); GLUCOSE, URINE NEGATIVE (NEGATIVE); KETONES,URINE NEGATIVE (NEGATIVE); LEUKOCYTE ESTERASE,URINE LARGE (NEGATIVE); NITRITE,URINE NEGATIVE (NEGATIVE); PROTEIN,URINE 30 mg/dL (NEGATIVE); URINE SPECIFIC GRAVITY 1.024; UROBILINOGEN,URINE NEGATIVE mg/dL (<2.0)
[2018-08-06 14:12] LABS: COLOR,URINE YELLOW
[2018-08-06] MEDS ORDERED: CEPHALEXIN 500 MG CAPSULE PO ONE (15:04)
[2018-08-06] MEDS ORDERED: PHENAZOPYRIDINE HCL 200 MG TABLET PO ONE (15:05)
--- NOTE | 2018-08-06 15:05 | ER Document Report ---
HPI - HPI Patient complains to provider of: Painful urination Time Seen by Provider: 08/06/18 14:55 Pain Level: 5 Context: Patient is a 58-year-old female presents to the emergency department complaining of dysuria for the last 2 days. Patient states today when she urinated and wiped there was a scant amount of blood which is what presented her to the emergency room. Patient denies any vaginal discharge, malodor or itching. Patient denies any fever, nausea, vomiting. Past medical history: None Medications: None Allergies: None - REPRODUCTIVE Reproductive: DENIES: : Past Medical History - General Information source: Patient - Social History Smoking Status: Unknown if Ever Smoked Family History: None, Reviewed & Not Pertinent, Other - adopted and does not know history of parents. All children apparently are well. Renal/ Medical History: Denies: Hx Peritoneal Dialysis Musculoskeletal Medical History: Reports Hx Arthritis, Reports Hx Musculoskeletal Trauma - right torn menisus Past Surgical History: Reports: Hx Section, Hx Orthopedic Surgery - rt knee ( meniscus} - Immunizations Immunizations up to date: No Hx Diphtheria, Pertussis, Tetanus Vaccination: No Vertical Provider Document - CONSTITUTIONAL Agree With Documented VS: Yes Notes: GENERAL: Alert, interacts well. No acute distress. HEAD: Normocephalic, atraumatic. EYES: Pupils equal, round, and reactive to light. Extraocular movements intact. ENT: Oral mucosa moist, tongue midline. NECK: Full range of motion. Supple. Trachea midline. LUNGS: Clear to auscultation bilaterally, no wheezes, rales, or rhonchi. No respiratory distress. HEART: Regular rate and rhythm. No murmur ABDOMEN: Soft, non-tender. Non-distended. Bowel sounds present in all 4 quadrants. Minor suprapubic tenderness upon palpation EXTREMITIES: Moves all 4 extremities spontaneously. No edema, normal radial and dorsalis pedis pulses bilaterally. No cyanosis. BACK: no cervical, thoracic, lumbar midline tenderness. No saddle anesthesia, normal distal neurovascular exam. No CVA tenderness bilaterally NEUROLOGICAL: Alert and oriented x3. Normal speech. cranial nerves II through XII grossly intact PSYCH: Normal affect, normal mood. SKIN: Warm, dry, normal turgor. No rashes or lesions noted. - INFECTION CONTROL TRAVEL OUTSIDE OF THE [place] IN LAST 30 DAYS: No Course - Re-evaluation Re-evalutation: 08/06/18 15:03 Discussed urine results with patient, will treat for urinary tract infection, culture sent. Patient is afebrile and non-tachycardic, stable for discharge. - Vital Signs Vital signs: Temp Pulse Resp BP Pulse Ox 98.9 F 87 16 142/79 H 97 08/06/18 13:47 08/06/18 13:47 08/06/18 13:47 08/06/18 13:47 08/06/18 13:47 - Laboratory Laboratory results interpreted by me: 08/06/18 13:45 Urine Protein 30 H Ur Leukocyte Esterase LARGE H Urine Ascorbic Acid 40 H Discharge - Discharge Clinical Impression: Urinary tract infection Qualifiers: Urinary tract infection type: acute cystitis Hematuria presence: without hematuria Qualified Code(s): N30.00 - Acute cystitis without hematuria Condition: Stable Disposition: HOME, SELF-CARE Instructions: Cephalexin ([facility]), Urinary Anesthetic Agent ([facility]), Urinary Tract Infection ([facility]) Prescriptions: Cephalexin Monohydrate [Keflex 500 mg Capsule] 500 mg PO BID 7 Days #14 capsule Phenazopyridine HCl [Pyridium 200 mg Tablet] 200 mg PO TID #15 tablet Forms: Return to Work
== END 2018-08-06 15:27 | disposition home or self-care (01) ==
LOC: ER 13:37
DX: N30.00 Acute cystitis without hematuria (principal); R30.0 Dysuria
CPT/HCPCS: 99283; 87086; 81001; J3490

== ENCOUNTER 2019-02-25 21:10 | Emergency (ER) | payer SELFPAY ==
[2019-02-25 22:11] VITALS: BP 136/82
[2019-02-25 22:12] LABS: APPEARANCE,URINE CLOUDY; BILIRUBIN,URINE NEGATIVE (NEGATIVE); CALCIUM OXALATE CRYSTALS,URINE TOO NUMEROUS TO CNT /HPF; COLOR,URINE YELLOW; GLUCOSE, URINE NEGATIVE (NEGATIVE); KETONES,URINE NEGATIVE (NEGATIVE); LEUKOCYTE ESTERASE,URINE LARGE (NEGATIVE); NITRITE,URINE NEGATIVE (NEGATIVE); PROTEIN,URINE NEGATIVE (NEGATIVE); URINE SPECIFIC GRAVITY 1.017; UROBILINOGEN,URINE NEGATIVE mg/dL (<2.0)
[2019-02-25] MEDS ORDERED: CEPHALEXIN 500 MG CAPSULE PO ONE (22:48)
[2019-02-25] MEDS ORDERED: PHENAZOPYRIDINE HCL 100 MG TABLET PO ONE (22:48)
--- NOTE | 2019-02-25 22:48 | ER Document Report ---
HPI - HPI Time Seen by Provider: 02/25/19 22:28 Pain Level: 2 Context: Patient is a 58-year-old female who presents to the emergency department with a chief complaint of urinary frequency and urgency. Patient states the symptoms started this morning when she woke up. Patient states she does have a history of urinary tract infections and knew that this is what it was and wanted to catch it early. Patient denies fever or chills. Patient denies abdominal pain. Patient denies flank pain or back pain. Patient denies any past medical history. - URINARY Urinary: REPORTS: Urgency, Frequency. DENIES: Dysuria - REPRODUCTIVE Reproductive: DENIES: : Past Medical History - General Information source: Patient - Social History Smoking Status: Former Smoker Frequency of alcohol use: None Drug Abuse: None Family History: None, Reviewed & Not Pertinent, Other - adopted and does not know history of parents. All children apparently are well. Patient has suicidal ideation: No Patient has homicidal ideation: No - Past Medical History Cardiac Medical History: Reports: None Pulmonary Medical History: Reports: None EENT Medical History: Reports: None Neurological Medical History: Reports: None Endocrine Medical History: Reports: None Renal/ Medical History: Reports: None. Denies: Hx Peritoneal Dialysis Malignancy Medical History: Reports: None GI Medical History: Reports: None Musculoskeletal Medical History: Reports Hx Arthritis, Reports Hx Musculoskeletal Trauma - right torn menisus Skin Medical History: Reports None Psychiatric Medical History: Reports: None Traumatic Medical History: Reports: None Infectious Medical History: Reports: None Past Surgical History: Reports: Hx Section, Hx Orthopedic Surgery - rt knee ( meniscus} - Immunizations Immunizations up to date: No Hx Diphtheria, Pertussis, Tetanus Vaccination: No Vertical Provider Document - CONSTITUTIONAL Agree With Documented VS: Yes Exam Limitations: No Limitations General Appearance: No Apparent Distress - INFECTION CONTROL TRAVEL OUTSIDE OF THE [place] IN LAST 30 DAYS: No - HEENT HEENT: Atraumatic, Normocephalic - RESPIRATORY Respiratory: Breath Sounds Normal, No Respiratory Distress - CARDIOVASCULAR Cardiovascular: Regular Rate, Regular Rhythm - GI/ABDOMEN Gastrointestinal: Abdomen Soft, Abdomen Non-Tender - BACK Notes: No CVA tenderness. - NEURO Level of Consciousness: Awake, Alert, Appropriate - DERM Integumentary: Warm, Dry, No Rash Course - Re-evaluation Re-evalutation: 02/25/19 22:44 Patient's urine is positive for urinary tract infection. Patient is nontoxic- appearing in triage. Patient does not have a fever or nor is she tachycardic. Will prescribe patient an antibiotic as well as Pyridium for the bladder discomfort. She is in agreement with this plan. - Vital Signs Vital signs: Temp Pulse Resp BP Pulse Ox 98.6 F 68 20 136/82 H 98 02/25/19 22:08 02/25/19 22:08 02/25/19 22:08 02/25/19 22:08 02/25/19 22:08 - Laboratory Laboratory results interpreted by me: 02/25/19 21:15 Ur Leukocyte Esterase LARGE H Discharge - Discharge Clinical Impression: Acute cystitis Qualifiers: Hematuria presence: without hematuria Qualified Code(s): N30.00 - Acute cystitis without hematuria Condition: Stable Disposition: HOME, SELF-CARE Additional Instructions: Today you were seen in the emergency department for urinary symptoms. Your urine specimen was positive for a urinary tract infection. I will place you on Keflex which is an antitbiotic as well as Pyridium which is for bladder discomfort and spasms. Pyridium can change the color of your urine. Please push fluids. Urinary Tract Infection Your evaluation indicates that you have a urinary tract infection. This is due to germs growing in the bladder. This is a common problem. This infection usually responds quickly to antibiotics. Your antibiotic should be taken exactly as prescribed. Drink plenty of fluids -- three to four quarts a day. Occasionally, a bladder anesthetic will be prescribed to help stop the feeling of urgency until the antibiotic has a chance to clear the infection. This may cause your urine to be dark orange. Certain urine infections require a culture. If the doctor obtained a culture, the results will be back in two days. You should call to see if a change in treatment is needed. A repeat urinalysis after you finish treatment is often recommended. The physician will let you know if further testing is required. Call the doctor if you develop fever, chills, flank pain, inability to urinate, or blood in the urine. Prescriptions: Cephalexin Monohydrate [Keflex 500 mg Capsule] 500 mg PO BID 7 Days #14 capsule Phenazopyridine HCl [Pyridium] 100 mg PO TID PRN #6 tablet PRN Reason:
== END 2019-02-25 23:00 | disposition home or self-care (01) ==
LOC: ER 21:10
DX: N30.00 Acute cystitis without hematuria (principal); R35.0 Frequency of micturition; R39.15 Urgency of urination; Z87.891 Personal history of nicotine dependence
CPT/HCPCS: 99283; 87086; 87088; 81001; 87186; J3490

== ENCOUNTER 2019-02-28 23:41 | Emergency (ER) | payer SELFPAY ==
[2019-03-01 02:17] LABS: APPEARANCE,URINE CLEAR; BILIRUBIN,URINE NEGATIVE (NEGATIVE); COLOR,URINE AMBER; GLUCOSE, URINE NEGATIVE (NEGATIVE); KETONES,URINE NEGATIVE (NEGATIVE); URINE SPECIFIC GRAVITY 1.022
[2019-03-01 02:18] LABS: LEUKOCYTE ESTERASE,URINE NEGATIVE (NEGATIVE); NITRITE,URINE POSITIVE (NEGATIVE); PROTEIN,URINE NEGATIVE (NEGATIVE)
[2019-03-01] MEDS ORDERED: PHENAZOPYRIDINE HCL 200 MG TABLET PO ONE (02:19)
--- NOTE | 2019-03-01 02:23 | ER Document Report ---
ED General - General Chief Complaint: Urinary Problem Stated Complaint: URINARY PROBLEM Time Seen by Provider: 03/01/19 01:59 Notes: Patient is a pleasant 58-year-old female presents with complaint of dysuria. She was starting antibiotic few days ago for urinary tract infection. She said she was given a few tablets of Pyridium but ran out the Pyridium. Since her in the Pyridium she is had recurrence of dysuria. She is concerned that maybe her infection is not being treated. I did review her urine culture from her previous visit and her infection should be sensitive to the Keflex that she was prescribed. She denies any fevers. No vomiting. No other complaints at this time. TRAVEL OUTSIDE OF THE [place] IN LAST 30 DAYS: No - Related Data Allergies/Adverse Reactions: No Known Allergies Allergy (Verified 03/01/19 00:14) Past Medical History - Social History Smoking Status: Never Smoker Frequency of alcohol use: None Drug Abuse: None Family History: None, Reviewed & Not Pertinent, Other - adopted and does not know history of parents. All children apparently are well. Patient has suicidal ideation: No Patient has homicidal ideation: No Renal/ Medical History: Denies: Hx Peritoneal Dialysis Musculoskeletal Medical History: Reports Hx Arthritis, Reports Hx Musculoskeletal Trauma - right torn menisus Past Surgical History: Reports: Hx Section, Hx Orthopedic Surgery - rt knee ( meniscus} - Immunizations Immunizations up to date: No Hx Diphtheria, Pertussis, Tetanus Vaccination: No Review of Systems - Review of Systems Notes: My Normal Review Basic REVIEW OF SYSTEMS: CONSTITUTIONAL : No fever RESPIRATORY: Denies cough, cold, or chest congestion. Denies shortness of breath, difficulty breathing, or wheezing. GASTROINTESTINAL: Denies abdominal pain. Denies nausea, vomiting, or diarrhea. GENITOURINARY: Dysuria and urinary Frequency. FEMALE GENITOURINARY: Denies vaginal bleeding, abnormal or irregular periods. MUSCULOSKELETAL: Denies neck or back pain or joint pain or swelling. SKIN: Denies rash or skin lesions. NEUROLOGICAL: Denies altered mental status or loss of consciousness. Denies headache. Denies weakness or paralysis or loss of use of either side. Denies problems with gait or speech. Denies sensory or motor loss. ALL OTHER SYSTEMS REVIEWED AND NEGATIVE. Physical Exam - Vital signs Vitals: Temp Pulse Resp BP Pulse Ox 98.2 F 69 16 132/72 H 96 03/01/19 00:03/01/19 00:03/01/19 00:03/01/19 00:03/01/19 00:28 - Notes Notes: General Appearance: Well nourished, alert, cooperative, no acute distress, no obvious discomfort. Well-appearing. Vitals: reviewed, See vital signs table. Eyes: PERRL, EOMI, Conjuctiva clear Mouth: No decreasd moisture Lungs: No wheezing, No rales, No rhonci, No accessory muscle use, good air exchange bilaterally. Heart: Normal rate, Regular rythm, No murmur, no rub Abdomen: Normal BS, soft, No rigidity, No abdominal tenderness, No guarding, no rebound, no abdominal masses, no organomegaly Extremities: good pulses in all extremities Skin: warm, dry, appropriate color Neuro: speech clear, oriented x 3, normal affect, responds appropriately to questions. Course - Re-evaluation Re-evalutation: 03/01/19 02:23 Patient's urinalysis today she does show that her infection is much improved. Previously she had 88 white blood cells. Now she only has 4 white blood cells and trace back to you. Her urine culture shows that her urine should be sensitive to the Keflex. However continue the Keflex. She still has 3 days of treatment left. I will prescribe her more Pyridium to help with her symptoms. I encouraged her return to ER if she has fevers, vomiting, or worsening of her symptoms. She is to follow-up with her doctor in at the end of her antibiotic course to have her urine rechecked. Patient agrees with plan and will be discharged home. Dictation of this chart was performed using voice recognition software; therefore, there may be some unintended grammatical errors. - Vital Signs Vital signs: Temp Pulse Resp BP Pulse Ox 97.4 F 66 16 124/65 96 03/01/19 02:03/01/19 02:03/01/19 02:03/01/19 02:03/01/19 02:28 - Laboratory Laboratory results interpreted by me: 03/01/19 01:23 Urine Nitrite POSITIVE H Urine Urobilinogen 2.0 H Discharge - Discharge Clinical Impression: Dysuria Condition: Good Disposition: HOME, SELF-CARE Additional Instructions: Please continue to take the Keflex as prescribed. I have prescribed you more Pyridium to help with the burning that you have with urination. Please follow- up with your doctor to have urine rechecked when you are done taking the Keflex. Please return to the ER if you have fevers, worsening of your symptoms, vomiting, or feel unwell. Prescriptions: Phenazopyridine HCl [Pyridium 100 Mg Tablet] 100 mg PO BID #8 tablet Forms: Return to Work
[2019-03-01 02:31] VITALS: BP 124/65
== END 2019-03-01 02:36 | disposition home or self-care (01) ==
LOC: ER 23:41
DX: R30.0 Dysuria (principal)
CPT/HCPCS: 99283; 81001; J3490

== ENCOUNTER 2019-05-27 22:55 | Emergency (ER) | payer SELFPAY ==
--- NOTE | 2019-05-28 02:14 | ER Document Report ---
ED Skin Rash/Insect Bite/Abscs - General Chief Complaint: Abscess Stated Complaint: VAGINAL SORE Time Seen by Provider: 05/28/19 01:01 Notes: Patient is a 58-year-old female presents to the emergency department with a lesion to her right labia. Patient voices she has had redness, swelling since Saturday. Patient's denying any discharge. Patient voices she does have generalized pain. When I asked the patient if she has a history of genital herpes patient voices "I had some lesions when I went through the change." Patient is referring to menopause. Patient's denying any vaginal discharge or dysuria. Patient voices "I have not had sex in years." TRAVEL OUTSIDE OF THE [place] IN LAST 30 DAYS: No - Related Data Allergies/Adverse Reactions: No Known Allergies Allergy (Verified 03/01/19 00:14) Past Medical History - General Information source: Patient - Social History Smoking Status: Never Smoker Family History: None, Reviewed & Not Pertinent, Other - adopted and does not know history of parents. All children apparently are well. Patient has suicidal ideation: No Patient has homicidal ideation: No Renal/ Medical History: Denies: Hx Peritoneal Dialysis Musculoskeletal Medical History: Reports Hx Arthritis, Reports Hx Musculoskeletal Trauma - right torn menisus Past Surgical History: Reports: Hx Section, Hx Orthopedic Surgery - rt knee ( meniscus} - Immunizations Immunizations up to date: No Hx Diphtheria, Pertussis, Tetanus Vaccination: No Review of Systems - Review of Systems Constitutional: denies: Fever EENT: No symptoms reported Cardiovascular: No symptoms reported Respiratory: No symptoms reported Gastrointestinal: No symptoms reported Genitourinary: No symptoms reported Female Genitourinary: See HPI Musculoskeletal: No symptoms reported Skin: See HPI Hematologic/Lymphatic: No symptoms reported Neurological/Psychological: No symptoms reported Physical Exam - Vital signs Vitals: Temp Pulse Resp BP Pulse Ox 97.8 F 73 20 149/74 H 98 05/27/19 23:00 05/27/19 23:00 05/27/19 23:00 05/27/19 23:00 05/27/19 23:00 - Notes Notes: GENERAL: Alert, interacts well. No acute distress. HEAD: Normocephalic, atraumatic. EYES: Pupils equal, round, and reactive to light. Extraocular movements intact. ENT: Oral mucosa moist, tongue midline. NECK: Full range of motion. Supple. Trachea midline. LUNGS: Clear to auscultation bilaterally, no wheezes, rales, or rhonchi. No resp iratory distress. HEART: Regular rate and rhythm. No murmur ABDOMEN: Soft, non-tender. Non-distended. Bowel sounds present in all 4 quadrants. EXTREMITIES: Moves all 4 extremities spontaneously. No edema, normal radial and dorsalis pedis pulses bilaterally. No cyanosis. BACK: no cervical, thoracic, lumbar midline tenderness. No saddle anesthesia, normal distal neurovascular exam. NEUROLOGICAL: Alert and oriented x3. Normal speech. cranial nerves II through XII grossly intact. PSYCH: Normal affect, normal mood. SKIN: Warm, dry, normal turgor. Genitalia: Melony Banks RN, quarter size area of hard erythema noted to right lower labia with ulcerated center approximately 0.25 cm 5.25 cm. Non- fluctuance, no obvious drainage noted Course - Re-evaluation Re-evalutation: 05/28/19 02:16 Patient presents to the emergency department with a lesion to her right labia. On physical exam and patient patient's history of genital herpes I will treat for same. Patient only has one side lesion. It is hard and nonfluctuant and ulcerated. Based on location potential Bartholin cyst we will treat with antibiotics. Discussed with patient close follow-up with primary care provider and [employer] HE[employer]. Patient voices understanding, stable for discharge. HSV swabs pending. - Vital Signs Vital signs: Temp Pulse Resp BP Pulse Ox 97.8 F 73 20 149/74 H 98 05/27/19 23:00 05/27/19 23:00 05/27/19 23:00 05/27/19 23:00 05/27/19 23:00 Discharge - Discharge Clinical Impression: Cellulitis Qualifiers: Site of cellulitis: other site Qualified Code(s): L03.818 - Cellulitis of other sites Herpes genitalia Qualifiers: Herpes simplex infection site: vulvovaginitis Qualified Code(s): A60.04 - Herpesviral vulvovaginitis Condition: Stable Disposition: HOME, SELF-CARE Instructions: Genital Herpes ([facility]), Acyclovir ([facility]), Cellulitis ([facility]) Additional Instructions: As we discussed you have been seen and treated in the emergency department for a lesion to your vaginal area. I am treating you with 2 different medications. One is for general herpes and what is for a bacterial infection. Please take both of them unless otherwise directed by your primary care provider at follow- up. Please follow-up with your primary care provider in the next 24 to 48 hours. Return to the emergency room for any concerns. Prescriptions: Acyclovir [Acyclovir 400 mg Tablet] 400 mg PO TID 5 Days tablet Doxycycline Hyclate 100 mg PO BID #14 capsule Referrals: EDMUNDO HAMILTON MD [ACTIVE STAFF] - Follow up as needed
[2019-05-28] MEDS ORDERED: DOXYCYCLINE HYCLATE 100 MG TABLET PO ONE (02:20)
[2019-05-28] MEDS ORDERED: CEFTRIAXONE INJ 250 MG VIAL IM ONE (02:20)
[2019-05-28] MEDS ORDERED: AZITHROMYCIN 250 MG TABLET PO ONE (02:20)
[2019-05-28] MEDS ORDERED: LIDOCAINE 1% INJ-PF (10 MG/ML) 30 ML SDV NEB ONE (02:20)
[2019-05-28] MEDS ORDERED: IBUPROFEN 800 MG TABLET PO ONE (02:28)
[2019-05-28 02:40] VITALS: BP 159/98
[2019-05-28 04:09] LABS: CHLAM PCR NOT DETECTED (NOT DETECT)
== END 2019-05-28 03:03 | disposition home or self-care (01) ==
LOC: ER 22:55
DX: A60.04 Herpesviral vulvovaginitis (principal); L03.90 Cellulitis, unspecified
CPT/HCPCS: 99283; 96372; 87250; 87491; 87591; J3490; J0696

== ENCOUNTER 2019-07-22 12:20 | Emergency (ER) | payer SELFPAY ==
[2019-07-22] MEDS ORDERED: ASPIRIN 81 MG TABLET, CHEWABLE PO ONE (12:31)
[2019-07-22] MEDS ORDERED: IPRATROPIUM/ALBUTEROL 0.5-2.5 MG/3 ML AMPUL NEB ONE (12:31)
[2019-07-22] MEDS ORDERED: ONDANSETRON 4 MG TAB.RAPDIS PO ONE (12:31)
--- NOTE | 2019-07-22 12:33 | ER Document Report ---
ED Medical Screen (RME) - General Chief Complaint: Congestion Stated Complaint: CHEST CONGESTION Time Seen by Provider: 07/22/19 12:28 Mode of Arrival: Ambulatory Information source: Patient Notes: Patient presents complaining of cough nausea vomiting and chest pain for the past week. Patient reports subjective fever and chills. Patient states he is unable to keep any food or liquids down. I have greeted and performed a rapid initial assessment of this patient. A comprehensive ED assessment and evaluation of the patient, analysis of test results and completion of the medical decision making process will be conducted by additional ED providers. TRAVEL OUTSIDE OF THE [place] IN LAST 30 DAYS: No - Related Data Allergies/Adverse Reactions: No Known Allergies Allergy (Verified 07/22/19 12:31) Past Medical History - Social History Chew tobacco use (# tins/day): No Frequency of alcohol use: None Renal/ Medical History: Denies: Hx Peritoneal Dialysis Musculoskeltal Medical History: Reports Hx Arthritis, Reports Hx Musculoskeletal Trauma - right torn menisus Past Surgical History: Reports: Hx Section, Hx Orthopedic Surgery - rt knee ( meniscus} - Immunizations Immunizations up to date: No Hx Diphtheria, Pertussis, Tetanus Vaccination: No Physical Exam - Vital signs Vitals: Temp Pulse Resp BP Pulse Ox 98.1 F 72 16 146/96 H 95 07/22/19 12:25 07/22/19 12:25 07/22/19 12:25 07/22/19 12:25 07/22/19 12:25 - Respiratory Respiratory status: No respiratory distress Chest status: Nontender Breath sounds: Nonproductive cough Course - Vital Signs Vital signs: Temp Pulse Resp BP Pulse Ox 98.1 F 72 16 146/96 H 95 07/22/19 12:25 07/22/19 12:25 07/22/19 12:25 07/22/19 12:25 07/22/19 12:25
--- NOTE | 2019-07-22 13:06 | RADIOLOGY REPORT (SQ) ---
EXAM DESCRIPTION: CHEST 2 VIEWS COMPLETED DATE/TIME: 07/22/2019 12:54 pm REASON FOR STUDY: cough, cp COMPARISON: Two-view chest 09/18/2016, 02/26/2011 EXAM PARAMETERS: NUMBER OF VIEWS: two views TECHNIQUE: Digital Frontal and Lateral radiographic views of the chest acquired. RADIATION DOSE: NA LIMITATIONS: none FINDINGS: LUNGS AND PLEURA: No opacities, masses or pneumothorax. No pleural effusion. MEDIASTINUM AND HILAR STRUCTURES: Moderate size retrocardiac hiatal hernia with air-fluid level HEART AND VASCULAR STRUCTURES: Heart normal size. No evidence for failure. BONES: No acute findings. HARDWARE: None in the chest. OTHER: No other significant finding. IMPRESSION: NO ACUTE RADIOGRAPHIC FINDING IN THE CHEST. TECHNICAL DOCUMENTATION: JOB ID: [id number] [employer]- All Rights Reserved Reading location - IP/workstation name: [email or web address]
[2019-07-22 13:18] LABS: ABSOLUTE BASOPHILS # (AUTO) 0.1 10^3/uL (0.0-0.2); ABSOLUTE EOSINOPHILS # (AUTO) 0.4 10^3/uL (0.0-0.6); ABSOLUTE LYMPHOCYTES (AUTO) 1.1 10^3/uL (0.5-4.7); ABSOLUTE MONOCYTES (AUTO) 0.4 10^3/uL (0.1-1.4); BASOPHILS % (AUTO) 1.6 % (0-2); EOSINOPHILS % (AUTO) 9.6 % (0-6); HEMOGLOBIN 10.8 g/dL (12.0-15.5); LYMPHOCYTES % (AUTO) 28.2 % (13-45); MEAN CORPUSCULAR HEMOGLOBIN 26.2 pg (27.0-33.4); MEAN CORPUSCULAR HGB CONC 31.7 g/dL (32.0-36.0); MEAN CORPUSCULAR VOLUME 83 fl (80-97); MONOCYTES % (AUTO) 8.9 % (3-13); PLATELET COUNT 235 10^3/uL (150-450); RED BLOOD COUNT 4.13 10^6/uL (3.72-5.28); RED CELL DISTRIBUTION WIDTH 15.2 % (11.5-14.0); SEGMENTED NEUTROPHILS % (AUTO) 51.7 % (42-78); TOTAL CELLS COUNTED % (AUTO) 100 %; WHITE BLOOD COUNT 3.9 10^3/uL (4.0-10.5)
[2019-07-22 13:43] LABS: ALBUMIN 4.4 g/dL (3.5-5.0); ALKALINE PHOSPHATASE 53 U/L (38-126); ANION GAP 9 (5-19); ASPARTATE AMINO TRANSFERASE 20 U/L (14-36); BILIRUBIN,DIRECT 0.1 mg/dL (0.0-0.4); BILIRUBIN,TOTAL 0.5 mg/dL (0.2-1.3); BLOOD UREA NITROGEN 10 mg/dL (7-20); CALCIUM 9.6 mg/dL (8.4-10.2); CARBON DIOXIDE 29 mmol/L (22-30); CHLORIDE 104 mmol/L (98-107); GLUCOSE 93 mg/dL (75-110); POTASSIUM 4.9 mmol/L (3.6-5.0); TOTAL PROTEIN 7.9 g/dL (6.3-8.2)
--- NOTE | 2019-07-22 14:15 | ER Document Report ---
HPI - HPI Time Seen by Provider: 07/22/19 12:28 Pain Level: 2 Notes: Patient is a 59-year-old female with no significant past medical history who presents complaint nasal congestion/discharge, subjective fever/chills, dry cough over the past 5 to 6 days with nausea and vomiting last night that has since resolved. She has noted an occ wheeze, mainly last night. Patient states that she is still urinating normally and having normal bowel movements otherwise. Pt states that she does not have any CP, but has some discomfort only during her coughing fits that resolves after coughing and described as "soreness." Denies drug allergies. No history of DVT, PE, CAD, DM, hypertension, COPD, asthma, tobacco abuse. Denies any headache, neck pain, sore throat, chest pain, palpitations, syncope, shortness of breath, dyspnea, abdominal pain, nausea/vomiting/diarrhea, urinary retention, dysuria, hematuria, back pain, or rash. - ROS Systems Reviewed and Negative: Yes All other systems reviewed and negative - REPRODUCTIVE Reproductive: DENIES: : Past Medical History - General Information source: Patient - Social History Smoking Status: Never Smoker Chew tobacco use (# tins/day): No Frequency of alcohol use: None Family History: None, Reviewed & Not Pertinent, Other - adopted and does not know history of parents. All children apparently are well. Patient has suicidal ideation: No Patient has homicidal ideation: No Renal/ Medical History: Denies: Hx Peritoneal Dialysis Musculoskeletal Medical History: Reports Hx Arthritis, Reports Hx Musculoskeletal Trauma - right torn menisus Past Surgical History: Reports: Hx Section, Hx Orthopedic Surgery - rt knee ( meniscus} - Immunizations Immunizations up to date: No Hx Diphtheria, Pertussis, Tetanus Vaccination: No Vertical Provider Document - CONSTITUTIONAL Agree With Documented VS: Yes Notes: PHYSICAL EXAMINATION: GENERAL: Well-appearing, well-nourished and in no acute distress. A&Ox4. Answers questions appropriately. Moves comfortably w/o notable distress HEAD: Atraumatic, normocephalic. EYES: Pupils equal round and reactive to light, extraocular movements intact, sclera anicteric, conjunctiva are normal. ENT: Nares patent and with clear discharge. oropharynx no erythema without exudates. No tonsilar hypertrophy without erythema or exudate. No palatine shift. Uvula midline. No tongue protrusion. No drooling, hoarseness, or airw ay compromise. Moist mucous membranes. No sinus tenderness. NECK: Normal range of motion, supple without lymphadenopathy. No rigidity/meningismus. LUNGS: Breath sounds clear to auscultation bilaterally and equal. No wheezes rales or rhonchi. No retractions HEART: Regular rate and rhythm without murmurs, rubs, gallops. ABDOMEN: Soft, nontender, nondistended abdomen. No guarding, no rebound. Normal bowel sounds present. No CVA tenderness bilaterally. NEUROLOGICAL: Normal speech, normal gait. Extremities: No edema. Jones negative bilaterally. No lower extremity asymmetry. PSYCH: Normal mood, normal affect. SKIN: Warm, Dry, normal turgor, no rashes or lesions noted. - INFECTION CONTROL TRAVEL OUTSIDE OF THE [place] IN LAST 30 DAYS: No Course - Re-evaluation Re-evalutation: 07/22/19 14:14 Patient is an afebrile, well-hydrated, 59-year-old female who presents to the em ergency department with an acute URI, suspect viral. Vitals are acceptable without significant tachycardia, tachypnea, or hypoxia. PE is otherwise unremarkable. Pt is nontoxic-appearing and is tolerating p.o. without difficulty. Lungs are clear to auscultation bilaterally. Labs unremarkable inc luding CXR and EKG. No further labs or imaging warranted at this time. Low suspicion for any meningitis, sepsis, peritonsillar/pharyngeal abscess, respiratory compromise, ACS, PE, pneumothorax, pericarditis, dissection, pneumonia, or other emergent systemic condition at this time. Patient is aware this condition can change from initial presentation and she needs to monitor symptoms closely. Conservative measures otherwise for symptoms. Recheck with your PCM in 2-3 days. Return to the ED with any worsening/concerning symptoms otherwise as reviewed in discharge. Patient is in agreement. - Vital Signs Vital signs: Temp Pulse Resp BP Pulse Ox 98.1 F 72 16 146/96 H 95 07/22/19 12:25 07/22/19 12:25 07/22/19 12:25 07/22/19 12:25 07/22/19 12:25 - Laboratory Result Diagrams: 07/22/19 12:39 07/22/19 12:39 Laboratory results interpreted by me: 07/22/19 12:39 WBC 3.9 L Hgb 10.8 L Hct 34.0 L MCH 26.2 L MCHC 31.7 L RDW 15.2 H Eos % (Auto) 9.6 H Discharge - Discharge Clinical Impression: Acute URI Condition: Stable Disposition: HOME, SELF-CARE Instructions: Upper Respiratory Illness ([facility]) Additional Instructions: Maintain adequate fluid intake tylenol/ibuprofen as needed alternating every 3 hours for fever/body ache over the counter cold medication as needed for symptoms Humidified air may help Wash your hands regularly Wear a mask when coughing F/u: with your PCM in 2-3 days for a recheck Return to the ED with any fever, altered mental status/behavior, chest pain, palpitations, syncope, headache, neck pain/stiffness, shortness of breath, chest pains, wheezing, drooling, trouble swallowing/breathing, abdominal pain, n/v/d, rash, or worsening/concerning symptoms otherwise. Prescriptions: Albuterol Sulfate [Proair HFA Inhalation Aerosol 8.5 gm MDI] 2 puff IH Q4H PRN #1 mdi PRN Reason: Ondansetron [Zofran Odt 4 mg Tablet] 1 - 2 tab PO Q4H PRN #15 tab.rapdis PRN Reason: For Nausea/Vomiting Forms: Elevated Blood Pressure Referrals: [facility] [Provider Group] - Follow up as needed
[2019-07-22] MEDS ORDERED: DEXAMETHASONE SOD PHOS INJ 10 MG/1 ML VIAL IM ONE (14:16)
[2019-07-22 15:07] VITALS: BP 115/69
--- NOTE | 2019-07-22 23:39 | EKG REPORT ---
SEVERITY:- ABNORMAL ECG - SINUS RHYTHM LEFT ATRIAL ABNORMALITY BORDERLINE LEFT AXIS DEVIATION : Confirmed by: Roseann Vera 22-Jul-2019 23:38:55
== END 2019-07-22 15:07 | disposition home or self-care (01) ==
LOC: ER 12:20
DX: J06.9 Acute upper respiratory infection, unspecified (principal); R09.81 Nasal congestion; R05 Cough; R09.89 Other specified symptoms and signs involving the circulatory and respiratory systems
CPT/HCPCS: 93005; 99283; 96372; 36415; 83690; 85025; 80053; 84484; 71046; 93010; S0119; J1100; J7620

== ENCOUNTER 2019-08-26 22:34 | Emergency (ER) | payer SELFPAY ==
[2019-08-26] MEDS ORDERED: PREDNISONE 20 MG TABLET PO ONE (23:00)
[2019-08-26] MEDS ORDERED: IPRATROPIUM/ALBUTEROL 0.5-2.5 MG/3 ML AMPUL NEB ONE (23:00)
--- NOTE | 2019-08-26 23:34 | RADIOLOGY REPORT (SQ) ---
EXAM DESCRIPTION: XR CHEST 2 VIEWS COMPLETED DATE/TME: 08/26/2019 23:00 CLINICAL HISTORY: 59 years Female, cough COMPARISON:Sep 18 2016 NUMBER OF VIEWS/TECHNIQUE: 2, Frontal, Lateral FINDINGS: Adequate lung volume, clear parenchyma, normal cardiac silhouette, and intact bony thorax. IMPRESSION: No acute cardiopulmonary findings.
[2019-08-27 00:12] VITALS: BP 119/76
--- NOTE | 2019-08-27 00:49 | ER Document Report ---
HPI - HPI Time Seen by Provider: 08/26/19 22:53 Pain Level: 2 Notes: 59-year-old female patient presenting with cough and congestion that is been ongoing for at least 1 month. Patient reports no fevers or chills but states that her cough is progressively getting worse. She reports productive yellowish-green sputum. Denies any chest pain or shortness of breath. - REPRODUCTIVE Reproductive: DENIES: : Past Medical History - General Information source: Patient - Social History Smoking Status: Never Smoker Family History: None, Reviewed & Not Pertinent, Other - adopted and does not know history of parents. All children apparently are well. Patient has suicidal ideation: No Patient has homicidal ideation: No Renal/ Medical History: Denies: Hx Peritoneal Dialysis Musculoskeletal Medical History: Reports Hx Arthritis, Reports Hx Musculoskeletal Trauma - right torn menisus Past Surgical History: Reports: Hx Section, Hx Orthopedic Surgery - rt knee ( meniscus} - Immunizations Immunizations up to date: No Hx Diphtheria, Pertussis, Tetanus Vaccination: No Vertical Provider Document - CONSTITUTIONAL Notes: PHYSICAL EXAMINATION: GENERAL: Well-appearing, well-nourished and in no acute distress. HEAD: Atraumatic, normocephalic. EYES: Pupils equal round and reactive to light, extraocular movements intact, conjunctiva are normal. ENT: Nares patent, oropharynx clear without exudates. Moist mucous membranes. NECK: Normal range of motion, supple without lymphadenopathy LUNGS: Mild expiratory wheezes noted bilaterally, no increased work of breathing. HEART: Regular rate and rhythm without murmurs ABDOMEN: Soft, nontender, nondistended abdomen. No guarding, no rebound. No masses appreciated. Female : deferred Musculoskeletal: Normal range of motion, no pitting or edema. No cyanosis. NEUROLOGICAL: Cranial nerves grossly intact. Normal speech, normal gait. Normal sensory, motor exams PSYCH: Normal mood, normal affect. SKIN: Warm, Dry, normal turgor, no rashes or lesions noted. - INFECTION CONTROL TRAVEL OUTSIDE OF THE [place] IN LAST 30 DAYS: No Course - Re-evaluation Re-evalutation: Patient appears well, nontoxic, wheezes have resolved after breathing treatment administered. Will start patient on antibiotics and steroids for acute bronchitis is patient's symptoms have been ongoing for greater than 1 month. Patient will follow-up with her primary care provider, strict ED return precautions were discussed, patient verbalized understanding and agreement with same. - Vital Signs Vital signs: Temp Pulse Resp BP Pulse Ox 98.7 F 91 20 119/76 98 08/27/19 00:10 08/27/19 00:10 08/26/19 22:42 08/27/19 00:10 08/27/19 00:10 Discharge - Discharge Clinical Impression: Acute bronchitis Qualifiers: Bronchitis organism: unspecified organism Qualified Code(s): J20.9 - Acute bronchitis, unspecified Condition: Stable Disposition: HOME, SELF-CARE Additional Instructions: Bronchitis You have acute bronchitis. This disease is an infection or inflammation of the air passageways in your lungs. Symptoms usually include cough, low grade fever, shortness of breath, and wheezing. The cough usually persists for a couple of weeks. Most cases of bronchitis get better without antibiotics. We prescribe antibiotics when we believe bacteria are damaging your airways, or if there's high risk the bronchitis will worsen into pneumonia. Increase your fluid intake. A cool mist humidifier may make your lungs more comfortable. An expectorant (cough medicine that loosens phlegm) can help. If you smoke, STOP!!! Recovery from bronchitis can be somewhat slow, but you should see improvement within a day or two. Repeated episodes of bronchitis may result in lung damage -- for example, chronic bronchitis, recurrent pneumonias, or emphysema. Call the doctor if you develop increasing fever, shortness of breath, chest pain, bloody sputum, or otherwise worsen. If you have not improved at all after several days, contact the physician. Prescriptions: Benzonatate [Tessalon Perles 100 mg Capsule] 1 - 2 tab PO Q8HP PRN #30 capsule PRN Reason: Prednisone [Deltasone 20 mg Tablet] 3 tab PO DAILY 5 Days #15 tablet Albuterol Sulfate [Proair HFA Inhalation Aerosol 8.5 gm MDI] 2 puff IH Q4H PRN #1 mdi PRN Reason: Azithromycin [Zithromax 250 mg Tablet] 250 mg PO ASDIR PRN #6 tablet PRN Reason:
== END 2019-08-27 00:50 | disposition home or self-care (01) ==
LOC: ER 22:34
DX: J20.9 Acute bronchitis, unspecified (principal)
CPT/HCPCS: 94640; 99283; 71046; J7512; J7620

== ENCOUNTER 2019-11-19 11:24 | Emergency (ER) | payer SELFPAY ==
--- NOTE | 2019-11-19 11:36 | ER Document Report ---
HPI - HPI Time Seen by Provider: 11/19/19 11:26 - REPRODUCTIVE Reproductive: DENIES: : - DERM Notes: 59-year-old female presents emergency room for complaints of left foot pain that started 3 days ago. States pain is the worst on top of her foot. Denies any trauma or recent injury. Patient denies a history of gout. Has tried ove [id number] ibuprofen and Tylenol without full relief, has tried icing and elevation without for relief. denies any previous injury to her feet. Denies fevers, chills, chest pain,palpitations, shortness of breath, dyspnea, nausea, vomiting, diarrhea, abdominal pain, hematuria,vision changes speech changes, LH, dizziness, syncope, headaches, weakness, bowel or bladder dysfunction, saddle anesthesia, numbness or tingling in bilateral upper or lower extremities equally, muscle paralysis, weakness in bilateral upper or lower extremities equally or rash. Past Medical History - General Information source: Patient - Social History Smoking Status: Unknown if Ever Smoked Family History: None, Reviewed & Not Pertinent, Other - adopted and does not know history of parents. All children apparently are well. Renal/ Medical History: Denies: Hx Peritoneal Dialysis Musculoskeletal Medical History: Reports Hx Arthritis, Reports Hx Musculoskeletal Trauma - right torn menisus Past Surgical History: Reports: Hx Section, Hx Orthopedic Surgery - rt knee ( meniscus} - Immunizations Immunizations up to date: No Hx Diphtheria, Pertussis, Tetanus Vaccination: No Vertical Provider Document - CONSTITUTIONAL Agree With Documented VS: Yes Exam Limitations: No Limitations General Appearance: WD/WN Notes: PHYSICAL EXAMINATION: reviewed vital signs by RN GENERAL: Well-appearing, well-nourished and in no acute distress. HEAD: Atraumatic, normocephalic. EYES: Pupils equal round and reactive to light, extraocular movements intact, conjunctiva are normal. ENT: Nares patent, oropharynx clear without exudates. Moist mucous membranes. NECK: Normal range of motion, supple without lymphadenopathy LUNGS: Breath sounds clear to auscultation bilaterally and equal. No wheezes rales or rhonchi. HEART: Regular rate and rhythm without murmurs ABDOMEN: Soft, nontender, nondistended abdomen. No guarding, no rebound. No masses appreciated. Female : deferred Musculoskeletal: Normal range of motion, no pitting or edema. No cyanosis. NEUROLOGICAL: Cranial nerves grossly intact. Normal speech, normal gait. Normal sensory, motor exams PSYCH: Normal mood, normal affect. SKIN: Warm, Dry, normal turgor, no rashes or lesions noted. L 2nd and 3rd metatarsal with STS and tenderness with palpation. Unable to palpate a step-off. No open lesions. squeeze test negative. dtr +2 BLE. Limited APROM. distal pulses + 2 in BUE. full motor and sensory function. No vascular compromise. Ankle exam within normal limits. No noted lacerations, lesions, ulcers or break in the skin. - INFECTION CONTROL TRAVEL OUTSIDE OF THE [place] IN LAST 30 DAYS: No Course - Re-evaluation Re-evalutation: 11/19/19 11:36 Afebrile vital stable no distress. Nurses notes reviewed. left foot xray negative for any acute fracture. CBC negative for leukocytosis or anemia, CMP negative for hepatic or renal dysfunction, no electrolyte disturbances, uric acid was normal. Patient placed in a postop shoe and crutches. Advised follow-up with cash reconciliation specialist and primary care provider, take naproxen as needed, elevate the liver, apply heat 20+20 minutes off several times a day. After performing a Medical Screening Examination, I estimate there is LOW risk for OPEN FRACTURE, COMPARTMENT SYNDROME, DEEP VENOUS THROMBOSIS, ACUTE TENDON RUPTURE, or NEUROVASCULAR INJURY thus I consider the discharge disposition reasonable. I have reevaluated this patient multiple times and no significant life threatening changes are noted. The patient and I have discussed the diagnosis and risks, and we agree with discharging home to closely follow-up with their primary doctor or the referral orthopedist with the understanding that symptoms and presentations can change. We also discussed retu rning to the Emergency Department immediately if new or worsening symptoms occur. We have discussed the symptoms which are most concerning (e.g., changing or worsening pain, numbness, weakness) that necessitate immediate return 11/19/19 13:27 - Laboratory Result Diagrams: 11/19/19 11:34 11/19/19 11:34 Discharge - Discharge Clinical Impression: Left foot pain Condition: Stable Disposition: HOME, SELF-CARE Instructions: Use of Crutches ([facility]), Exercises for the Foot Muscles ([facility]) Additional Instructions: Your labs today were normal. Your x-ray was normal. Please follow-up with or thopedic specialist and primary care provider if your symptoms become worse. Please alternate between Tylenol and naproxen for pain control. Wear your postop shoe and use crutches as directed Prescriptions: Naproxen 500 mg PO BID #10 tablet Referrals: NARCISO MA, [NO LOCAL MD] - Follow up as needed BILL GRANT JR, [ACTIVE PROVISIONAL STAFF] - Follow up as needed
--- NOTE | 2019-11-19 12:03 | RADIOLOGY REPORT (SQ) ---
EXAM DESCRIPTION: FOOT LEFT COMPLETE COMPLETED DATE/TIME: 11/19/2019 11:50 am REASON FOR STUDY: left foot pain COMPARISON: None. NUMBER OF VIEWS: Three views. TECHNIQUE: AP, lateral and oblique radiographic images acquired of the left foot. LIMITATIONS: None. FINDINGS: MINERALIZATION: Normal. BONES: No acute fracture or dislocation. No worrisome bone lesions. JOINTS: Hallux valgus deformity. SOFT TISSUES: No soft tissue swelling. No foreign body. OTHER: Small calcaneal spur at the insertion site of the plantar aponeurosis. IMPRESSION: Hallux valgus deformity. No acute findings. TECHNICAL DOCUMENTATION: JOB ID: [id number] 2010 [employer]- All Rights Reserved Reading location - IP/workstation name: [email or web address]
[2019-11-19 12:21] LABS: ABSOLUTE NEUT (AUTO) 2.4 10^3/uL (1.7-8.2); BASOPHILS % (AUTO) 1.3 % (0-2); HEMOGLOBIN 9.6 g/dL (12.0-15.5); LYMPHOCYTES % (AUTO) 24.2 % (13-45); MEAN CORPUSCULAR HEMOGLOBIN 24.6 pg (27.0-33.4); MEAN CORPUSCULAR HGB CONC 31.9 g/dL (32.0-36.0); MEAN CORPUSCULAR VOLUME 77 fl (80-97); MONOCYTES % (AUTO) 8.4 % (3-13); PLATELET COUNT 247 10^3/uL (150-450); RED BLOOD COUNT 3.89 10^6/uL (3.72-5.28); RED CELL DISTRIBUTION WIDTH 16.1 % (11.5-14.0); SEGMENTED NEUTROPHILS % (AUTO) 59.1 % (42-78); TOTAL CELLS COUNTED % (AUTO) 100 %
[2019-11-19 12:22] LABS: ABSOLUTE BASOPHILS # (AUTO) 0.1 10^3/uL (0.0-0.2); ABSOLUTE EOSINOPHILS # (AUTO) 0.3 10^3/uL (0.0-0.6); ABSOLUTE MONOCYTES (AUTO) 0.3 10^3/uL (0.1-1.4)
[2019-11-19 13:14] LABS: ALBUMIN 4.1 g/dL (3.5-5.0); ALKALINE PHOSPHATASE 48 U/L (38-126); ANION GAP 7 (5-19); ASPARTATE AMINO TRANSFERASE 16 U/L (14-36); BILIRUBIN,DIRECT 0.3 mg/dL (0.0-0.4); BILIRUBIN,TOTAL 0.4 mg/dL (0.2-1.3); BLOOD UREA NITROGEN 11 mg/dL (7-20); CALCIUM 9.2 mg/dL (8.4-10.2); CARBON DIOXIDE 29 mmol/L (22-30); CHLORIDE 102 mmol/L (98-107); GLUCOSE 102 mg/dL (75-110); POTASSIUM 4.7 mmol/L (3.6-5.0); TOTAL PROTEIN 7.5 g/dL (6.3-8.2)
[2019-11-19 13:15] LABS: URIC ACID 3.1 mg/dL (2.5-7.5)
[2019-11-19 13:33] VITALS: BP 122/71
== END 2019-11-19 13:31 | disposition home or self-care (01) ==
LOC: ER 11:24
DX: M79.672 Pain in left foot (principal)
CPT/HCPCS: 36415; 80053; 84550; 85025; 99283

== ENCOUNTER 2020-03-10 11:27 | Emergency (ER) | payer SELFPAY ==
--- NOTE | 2020-03-10 12:22 | ER Document Report ---
ED Head/Face/Scalp Injury - General Chief Complaint: Head Injury Stated Complaint: HEAD INJURY Time Seen by Provider: 03/10/20 12:13 Primary Care Provider: KEESHA DANIEL PA-C [Primary Care Provider] - Follow up in 3-5 days Mode of Arrival: Ambulatory Information source: Patient Notes: 59-year-old female presented to ED for complaint of headache nausea and fatigue. She states about 24-48 hrs. ago she was at work when a come-along strep hit her in the head with metal part. States she was at work when it happened. She states she has had headaches nausea dizziness and fatigue since that hit her. She does not have any lacerations or bleeding but her whole right side of her head is tender to palpation. There is no obvious lumps or bumps at this time. We will get CT of the head to ensure there is no slow bleed or any injuries that are not obvious. She is alert oriented respirations regular and unlabored speaking in full sentences pupils equal and react light. TRAVEL OUTSIDE OF THE [place] IN LAST 30 DAYS: No - HPI Patient complains to provider of: Contusion, Injury, Pain Injury to: Head Location of problem: Head Occurred: Yesterday Where: Work Timing: Still present Context: Direct blow, Other - Aching throbbing Loss consciousness: No loss of consciousness Remembers: Injury, Coming to hospital - Related Data Allergies/Adverse Reactions: No Known Allergies Allergy (Verified 07/22/19 12:31) Past Medical History - General Information source: Patient - Social History Smoking Status: Never Smoker Frequency of alcohol use: None Drug Abuse: None Lives with: Family Family History: None, Reviewed & Not Pertinent, Other - adopted and does not know history of parents. All children apparently are well. Patient has suicidal ideation: No Patient has homicidal ideation: No - Past Medical History Cardiac Medical History: Reports: None Pulmonary Medical History: Reports: Hx Bronchitis, Hx Pneumonia EENT Medical History: Reports: None Neurological Medical History: Reports: None Endocrine Medical History: Reports: None Renal/ Medical History: Reports: None Malignancy Medical History: Reports: None GI Medical History: Reports: None Musculoskeletal Medical History: Reports Hx Arthritis, Reports Hx Musculoskeletal Trauma - right torn menisus Skin Medical History: Reports None Psychiatric Medical History: Reports: None Traumatic Medical History: Reports: None Infectious Medical History: Reports: None Past Surgical History: Reports: Hx Section, Hx Orthopedic Surgery - rt knee ( meniscus} - Immunizations Immunizations up to date: No Hx Diphtheria, Pertussis, Tetanus Vaccination: No Review of Systems - Review of Systems Constitutional: No symptoms reported EENT: No symptoms reported Cardiovascular: Dizziness Respiratory: No symptoms reported Gastrointestinal: Nausea Genitourinary: No symptoms reported Female Genitourinary: No symptoms reported Musculoskeletal: No symptoms reported Skin: No symptoms reported Hematologic/Lymphatic: No symptoms reported Neurological/Psychological: Headaches. denies: Lost consciousness -: Yes All other systems reviewed and negative Physical Exam - Vital signs Vitals: Temp Pulse Resp BP Pulse Ox 98.2 F 66 20 139/69 H 97 03/10/20 11:34 03/10/20 11:34 03/10/20 11:34 03/10/20 11:34 03/10/20 11:34 Interpretation: Normal - General General appearance: Appears well, Alert - HEENT Head: Normocephalic, Atraumatic Eyes: Normal Pupils: PERRL - Respiratory Respiratory status: No respiratory distress Chest status: Nontender Breath sounds: Normal Chest palpation: Normal - Cardiovascular Rhythm: Regular Heart sounds: Normal auscultation Murmur: No - Abdominal Inspection: Normal Distension: No distension Bowel sounds: Normal Tenderness: Nontender Organomegaly: No organomegaly - Back Back: Normal, Nontender - Extremities General upper extremity: Normal inspection, Nontender, Normal color, Normal ROM, Normal temperature General lower extremity: Normal inspection, Nontender, Normal color, Normal ROM, Normal temperature, Normal weight bearing. No: Jones's sign - Neurological Neuro grossly intact: Yes Cognition: Normal Orientation: AAOx4 Tray Coma Scale Eye Opening: Spontaneous Tray Coma Scale Verbal: Oriented [place] Coma Scale Motor: Obeys Commands [place] Coma Scale Total: 15 Speech: Normal Motor strength normal: LUE, RUE, LLE, RLE Sensory: Normal - Psychological Associated symptoms: Normal affect, Normal mood - Skin Skin Temperature: Warm Skin Moisture: Dry Skin Color: Normal Course - Re-evaluation Re-evalutation: 03/10/20 21:[address] of the head with patient and written report of the CT given to the patient. Patient was alert oriented pupils equal and reactive to light able to walk with a even steady gait before discharge. - Vital Signs Vital signs: Temp Pulse Resp BP Pulse Ox 98.4 F 68 16 138/65 H 98 03/10/20 13:40 03/10/20 13:40 03/10/20 13:40 03/10/20 13:40 03/10/20 13:40 - Diagnostic Test Radiology reviewed: Image reviewed, Reports reviewed Discharge - Discharge Clinical Impression: Head injury Qualifiers: Encounter type: initial encounter Qualified Code(s): S09.90XA - Unspecified injury of head, initial encounter Condition: Stable Disposition: HOME, SELF-CARE Additional Instructions: HEAD INJURY PRECAUTIONS: At this point, there is no evidence that your head injury is serious. Observation is necessary, however. Take only clear liquids for the first few hours, unless told otherwise by the doctor. If no pain medication was prescribed, you may take acetaminophen according to the directions on the bottle. Do not take any medication that may alter your level of alertness (unless you've discussed it with the doctor first). Limit activity for the first 24 hours. Bed rest is best. During the first 24 hours, check to see approximately every two to three hours that the patient is easily arousable, responds normally, and can perform common tasks such as walking without difficulty. Contact your doctor or go to the hospital if any of the following things occur: Persistent vomiting, difficulty in arousing the patient, worsening or continued headache, or failure to improve as expected. Head injuries can cause symptoms that persist for a few days or even a few weeks. CONTUSION: Your injury has resulted in a contusion -- a crushing of the deep tissues. No injury to important structures was detected during the physician's exam. Contusions vary in the amount of pain they cause, and in the length of time required for healing. Typically, the area will become bruised, and will remain painful to touch for two or three weeks. However, most patients are back to working and playing within a few days. After the initial period of rest and cold-packs, your symptoms (together with the doctor's recommendations) will determine how rapidly you can get back to full activity. Usually this means "do what feels okay, but don't do things that hurt." If re-examination was recommended, it's important to follow up as instru cted. Call the doctor or return any time if pain increases, if swelling becomes severe, if you develop numbness or weakness in an injured extremity, or if any other alarming symptoms occur. USE OF TYLENOL (ACETAMINOPHEN): Acetaminophen may be taken for pain relief or fever control. It's much safer than aspirin, offering a wider range of "safe" dosages. It is safe during . Some brand names are Tylenol, Panadol, Datril, Anacin 3, Tempra, and Liquiprin. Acetaminophen can be repeated every four hours. The following are maximum recommended dosages: WEIGHT Dose Drops Elixir Chewable(80mg) (LBS.) drprs=droppers tsp=teaspoon 6 40 mg 0.4 ml (1/2) 6-11 80 mg 0.8 ml (full) tsp 1 tab 12-16 120 mg 1 1/2 drprs 3/4 tsp 1 1/2 tabs 17-23 160 mg 2 drprs 1 tsp 2 tabs 24-30 240 mg 3 drprs 1 1/2 tsp 3 tabs 30-35 320 mg 2 tsp 4 tabs 36-41 360 mg 2 1/4 tsp 4 1/2 tabs 42-47 400 mg 2 1/2 tsp 5 tabs 48-53 480 mg 3 tsp 6 tabs 54-59 520 mg 3 1/4 tsp 6 1/2 tabs 60-64 560 mg 3 1/2 tsp 7 tabs 65-70 600 mg 3 3/4 tsp 7 1/2 tabs 71-76 640 mg 4 tsp 8 tabs 77-82 720 mg 4 1/2 tsp 9 tabs 83-88 800 mg 5 tsp 10 tabs >89 pounds or adults 650 mg to 900 mg Acetaminophen can be repeated every four hours. Maximum dose not to exceed 4000 mg a day. These maximum recommended dosages are slightly higher than the dosages written on the product container, but these dosages are very safe and below the toxic dosage for acetaminophen. ICE PACKS: Apply ice packs frequently against the painful area. Many different schedules are recommended, such as "20 minutes on, 20 minutes off" or "one hour ice, two hours rest." If you need to work, you may need to go longer between ice treatments. You should plan to have the area ice packed AT LEAST one fourth of the time. The ice should be applied over the wrap, tape, or splint, or over a layer of cloth -- not directly against the skin. Some ice bags have a built-in cloth and can be put directly on the skin. Ibuprofen Ibuprofen is an excellent, safe drug for pain control. In addition, it has potent antiinflammatory effects which are beneficial, especially in the treatment of injuries, arthritis, or tendonitis. It's best to take ibuprofen with food. Persons with ulcer disease or allergy to aspirin should notify their physician of this before taking ibuprofen. Take the medication exactly as prescribed. Don't take additional doses unless instructed to do so by your doctor. If you develop wheezing, shortness of breath, hives, faintness, stomach pain, vomiting, or dark black stools, return for re-evaluation at once. FOLLOW-UP CARE: If you have been referred to a physician for follow-up care, call the physicians office for an appointment as you were instructed or within the next two days. If you experience worsening or a significant change in your symptoms, notify the physician immediately or return to the Emergency Department at any time for re-evaluation. Forms: Elevated Blood Pressure, Return to Work Referrals: KEESHA DANIEL PA-C [Primary Care Provider] - Follow up in 3-5 days
--- NOTE | 2020-03-10 13:04 | RADIOLOGY REPORT (SQ) ---
EXAM DESCRIPTION: CT HEAD WITHOUT IMAGES COMPLETED DATE/TIME: 03/10/2020 12:39 pm REASON FOR STUDY: head injury nausea fatigue COMPARISON: 06/28/2018. TECHNIQUE: Axial images acquired through the brain without intravenous contrast. Images reviewed wi th bone, brain and subdural windows. Additional sagittal and coronal reconstructions were generated. Images stored on PACS. All CT scanners at this facility use dose modulation, iterative reconstruction, and/or weight based d osing when appropriate to reduce radiation dose to as low as reasonably achievable (ALARA). [facility]: Dose Right [facility]: CareDose [facility]: Dose Right [facility]: Teradose 4D [facility]: [place] RADIATION DOSE: CT Rad equipment meets quality standard of care and radiation dose reduction techniq ues were employed. CTDIvol: 53.2 mGy. DLP: 991 mGy-cm. mGy. LIMITATIONS: None. FINDINGS: VENTRICLES: Normal size and contour. CEREBRUM: No masses. No hemorrhage. No midline shift. No evidence for acute infarction. Normal gra y/white matter differentiation. No areas of low density in the white matter. CEREBELLUM: No masses. No hemorrhage. No alteration of density. No evidence for acute infarction. EXTRAAXIAL SPACES: No fluid collections. No masses. ORBITS AND GLOBE: No intra- or extraconal masses. Normal contour of globe without masses. CALVARIUM: No fracture. PARANASAL SINUSES: No fluid or mucosal thickening. SOFT TISSUES: No mass or hematoma. OTHER: No other significant finding. IMPRESSION: NORMAL BRAIN CT WITHOUT CONTRAST. EVIDENCE OF ACUTE STROKE: NO. COMMENT: Quality ID # [id number]: Final reports with documentation of one or more dose reduction techniques (e.g., Automated exposure control, adjustment of the mA and/or kV according to patient size, use of iterative reconstruction technique) TECHNICAL DOCUMENTATION: JOB ID: [id number] 2010 [employer]- All Rights Reserved Reading location - IP/workstation name: [email or web address]
[2020-03-10 13:43] VITALS: BP 138/65
== END 2020-03-10 13:41 | disposition home or self-care (01) ==
LOC: ER 11:27
DX: S09.90XA Unspecified injury of head, initial encounter (principal); R11.0 Nausea; R53.83 Other fatigue; W22.8XXA Striking against or struck by other objects, initial encounter; Y99.0 Civilian activity done for income or pay
CPT/HCPCS: 70450; 99283